=== PATIENT | female | born 1940 | race Caucasian/White ===

== ENCOUNTER → 2017-02-12 16:30 | Outpatient (CLI) | payer MEDICARE | END | disposition home or self-care (01) | LOC: D.MAMMO 14:00 | DX: R92.8 Other abnormal and inconclusive findings on diagnostic imaging of breast (principal) ==

== ENCOUNTER → 2018-02-17 20:35 | Outpatient (CLI) | payer MEDICARE | END | disposition home or self-care (01) | LOC: D.MAMMO 01-26 08:45 | DX: Z12.31 Encounter for screening mammogram for malignant neoplasm of breast (principal) ==

== ENCOUNTER → 2018-08-13 08:36 | Outpatient (CLI) | payer OTHER | END | disposition home or self-care (01) | LOC: D.RAD 08:36 | PROVIDERS: ATTEND Internal Medicine Gastroenterology | DX: R63.4 Abnormal weight loss (principal); R10.13 Epigastric pain; K57.90 Diverticulosis of intestine, part unspecified, without perforation or abscess without bleeding ==

== ENCOUNTER → 2018-11-18 09:04 | Outpatient (CLI) | payer OTHER | END | disposition home or self-care (01) | LOC: D.CT 09:04 | PROVIDERS: ATTEND Internal Medicine Gastroenterology | DX: R63.4 Abnormal weight loss (principal); R10.9 Unspecified abdominal pain ==

== ENCOUNTER → 2020-09-19 12:48 | Outpatient (CLI) | payer OTHER ==
[~2020-09-19] VITALS: Ht 149.9 cm; Wt 37.2 kg
[2020-09-19 15:25] VITALS: Ht 149.9 cm; Wt 37.2 kg
== END | disposition home or self-care (01) ==
LOC: D.FANS 12:48
PROVIDERS: ATTEND Family Medicine
DX: F50.00 Anorexia nervosa, unspecified (principal); K21.9 Gastro-esophageal reflux disease without esophagitis; Z79.899 Other long term (current) drug therapy; M81.0 Age-related osteoporosis without current pathological fracture; R63.4 Abnormal weight loss; Z68.1 Body mass index [BMI] 19.9 or less, adult